=== PATIENT | male | born 1965 | race African-American/Black ===

== ENCOUNTER 2017-05-12 13:16 | Inpatient (IN) | payer OTHER ==
[2017-05-12 13:52] VITALS: BMI 28.9
--- NOTE | 2017-05-12 16:09 | HP ---
CIWA Score - CIWA Score Nausea/Vomitin Muscle Tremors: 3 Anxiety: 3 Agitation: 3 Paroxysmal Sweats: 2 Orientation: 0-Oriented Tacttile Disturbances: 2-Mild Itch/Numbness/Burn Auditory Disturbances: 2-Mild Harshness/Frighten Visual Disturbances: 2-Mild Sensitivity Headache: 2-Mild CIWA-Ar Total Score: 22 Admission ROS BHS - HPI Chief Complaint: I NEED HELP TO STOP DRINKING ALCOHOL AND COCAINE Allergies/Adverse Reactions: Allergies Allergy/AdvReac Type Severity Reaction Status Date / Time No Known Allergies Allergy Verified 05/12/17 16:01 History of Present Illness: THIS 51 YEARS OLD MALE WITH ALCOHOL AND COCAINE DEPENDENCE,SEEKING DETOX,LAST TREATMENT [facility] 07/26/16 TO 07/30/16 SCHIZOAFFECTIVE DISORDER NICOTINE DEPENDENCE LONGEST SOBRIETY 9 MONTHS Exam Limitations: No Limitations - Ebola screening Have you traveled outside of the country in the last 21 days: No Have you had contact with anyone from an Ebola affected area: No Have you been sick,other than usual withdrawal symptoms: No Do you have a fever: No - Review of Systems Constitutional: Loss of Appetite, Malaise, Night Sweats, Changes in sleep EENT: reports: No Symptoms Reported, Nose Congestion Respiratory: reports: No Symptoms reported Cardiac: reports: No Symptoms Reported GI: reports: Diarrhea, Nausea, Vomiting, Abdominal cramping : reports: No Symptoms Reported Musculoskeletal: reports: Back Pain, Muscle Pain Integumentary: reports: Dryness Neuro: reports: Headache, Tremors Endocrine: reports: No Symptoms Reported Hematology: reports: No Symptoms Reported Psychiatric: reports: Judgement Intact, Mood/Affect Appropiate, Orientated x3 ( SCHIZOAFFECTIVE DISORDER), other Patient History - Patient Medical History Hx Anemia: Yes (IRON SUPPLEMENT IN THE PAST) Hx Asthma: No Hx Chronic Obstructive Pulmonary Disease (COPD): No Hx Cancer: No Hx Cardiac Disorders: No Hx Congestive Heart Failure: No Hx Hypertension: Yes (ON MED) Hx Hypercholesterolemia: No Hx Pacemaker: No HX Cerebrovascular Accident: No Hx Seizures: Yes (ALCOHOL RELATED LAST 2015) Hx Dementia: No Hx Diabetes: No Hx Gastrointestinal Disorders: No Hx Liver Disease: No Hx Genitourinary Disorders: Yes (BPH) Hx Sexually Transmitted Disorders: No Hx Renal Disease (ESRD): No Hx Thyroid Disease: No Hx Human Immunodeficiency Virus (HIV): No (NEGATIVE HX LAST 11/29) Hx Hepatitis C: No Hx Depression: Yes Hx Suicide Attempt: Yes (OVER DOSE 2014) Hx Bipolar Disorder: No Hx Schizophrenia: Yes (ON MED) Other Medical History: NO SUICIDAL,NO HOMICIDAL - Patient Surgical History Past Surgical History: No Hx Neurologic Surgery: No Hx Cataract Extraction: No Hx Cardiac Surgery: No Hx Lung Surgery: No Hx Breast Surgery: No Hx Breast Biopsy: No Hx Abdominal Surgery: Yes (SX FOR RIGHT INGUINAL HERNIA AT 25 YEARS OLD) Hx Appendectomy: No Hx Cholecystectomy: No Hx Genitourinary Surgery: No Hx Section: No Hx Orthopedic Surgery: No Anesthesia Reaction: No - PPD History Previous Implant?: Yes Documented Results: Negative w/o proof Implanted On Prior [facility] Admission?: Yes Date: 01/28/16 Results: 0 MM PPD to be Administered?: Yes - Smoking Cessation Smoking history: Current every day smoker Have you smoked in the past 12 months: Yes Aproximately how many cigarettes per day: 1 Hx Chewing Tobacco Use: No Initiated information on smoking cessation: Yes 'Breaking Loose' booklet given: 05/12/17 - Substance & Tx. History Hx Alcohol Use: Yes Hx Substance Use: Yes Substance Use Type: Alcohol, Cocaine Hx Substance Use Treatment: Yes ([facility] 07/26/16 TO 07/30/16) - Substances Abused Alcohol Route: Oral Frequency: Daily Amount used: 1 CASE BEER Age of first use: 12 Date of Last Use: 05/12/17 Crack Route: Smoking Frequency: 1-3 times last 30 days Amount used: $200 Age of first use: 28 Date of Last Use: 05/10/17 Family Disease History - Family Disease History Family Disease History: Heart Disease: Father (COLON ), Mother (stroke , etoh), CA: Father, Other: Mother Admission Physical Exam S - Vital Signs Vital Signs: Vital Signs - 24 hr 05/12/17 13:48 Temperature 97.7 F Pulse Rate 73 Respiratory 18 Rate Blood Pressure 130/84 - Physical General Appearance: Yes: Moderate Distress, Alcohol on Breath, Tremorous, Irritable, Sweating, Anxious HEENTM: Yes: Hearing grossly Normal, Normal ENT Inspection, JOSE, Pharynx Normal Respiratory: Yes: Lungs Clear, Normal Breath Sounds, No Respiratory Distress Neck: Yes: Supple, Trachea in good position Breast: Yes: Within Normal Limits Cardiology: Yes: Within Normal Limits, Regular Rhythm, Regular Rate, S1, S2 Abdominal: Yes: Within Normal Limits, Normal Bowel Sounds, Non Tender, Flat, Soft Genitourinary: Yes: Within Normal Limits Back: Yes: Muscle Spasm Musculoskeletal: Yes: Back pain, Muscle Pain Extremities: Yes: Tremors 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 intact, Fully Oriented, Alert, Motor Strength 5/5 Integumentary: Yes: Dry Lymphatic: Yes: Within Normal Limits - Diagnostic (1) Alcohol dependence with uncomplicated withdrawal Current Visit: Yes Status: Acute (2) Cocaine dependence Current Visit: No Status: Acute Qualifiers: Substance use status: uncomplicated Qualified Code(s): F14.20 - Cocaine dependence, uncomplicated (3) HTN (hypertension) Current Visit: No Status: Chronic Qualifiers: Hypertension type: essential hypertension Qualified Code(s): I10 - Essential (primary) hypertension (4) Nicotine dependence Current Visit: No Status: Chronic Qualifiers: Nicotine product type: cigarettes Substance use status: uncomplicated Qualified Code(s): F17.210 - Nicotine dependence, cigarettes, uncomplicated (5) Schizoaffective disorder Current Visit: No Status: Chronic (6) BPH (benign prostatic hyperplasia) Current Visit: Yes Status: Acute Cleared for Admission S - Detox or Rehab [facility] Level of Care: Medically Managed Detox Regimen/Protocol: Librium [facility] Breath Alcohol Content Breath Alcohol Content: 0.012 Urine Drug Screen - Results Drug Screen Negative: No Urine Drug Screen Results: CAPRICE-Cocaine
[2017-05-12] MEDS ORDERED: LOPERAMIDE HCL 2 MG CAPSULE PO PRN (16:23)
[2017-05-12] MEDS ORDERED: diphenhydrAMINE HCL 50 MG CAPSULE PO PRN (16:23)
[2017-05-12] MEDS ORDERED: chlordiazePOXIDE HCL 25 MG CAPSULE PO PRN (16:23)
[2017-05-12] MEDS ORDERED: MAGNESIUM HYDROX 2400MG/30ML ORAL SUSPENSION 30 ML CUP PO PRN (16:23)
[2017-05-12] MEDS ORDERED: guaiFENesin/D-METHORPHAN HB 10 ML UNIT-DOSE CUPS PO PRN (16:23)
[2017-05-12] MEDS ORDERED: MAGNESIUM CITRATE 300 ML BOTTLE PO PRN (16:23)
[2017-05-12] MEDS ORDERED: IBUPROFEN 400 MG TABLET (FP) PO PRN (16:23)
[2017-05-12] MEDS ORDERED: MAG HYDROX/AL HYDROX/SIMETH 30 ML UNIT-DOSE CUP PO PRN (16:23)
[2017-05-12] MEDS ORDERED: ACETAMINOPHEN 325 MG TABLET (FP) PO PRN (16:23)
[2017-05-12] MEDS ORDERED: MENTHOL/PHENOL 1 EACH UD MM PRN (16:23)
[2017-05-12] MEDS ORDERED: hydrOXYzine PAMOATE 25 MG CAPSULE (FP) PO PRN (16:23)
[2017-05-12] MEDS ORDERED: P-EPHED 60MG/TRIPROLIDI 2.5MG TABLET PO PRN (16:23)
[2017-05-12] MEDS ORDERED: chlordiazePOXIDE HCL 25 MG CAPSULE PO ONE (16:23)
[2017-05-12] MEDS ORDERED: COLLOIDAL OATMEAL 1 BAR EACH TP PRN (17:26)
[2017-05-12] MEDS: chlordiazePOXIDE HCL 25 MG CAPSULE PO SCH ×2 (17:57→22:27)
[2017-05-12] MEDS ORDERED: VARENICLINE TARTRATE 0.5 MG TAB PO SCH (22:00)
[2017-05-12] MEDS: TAMSULOSIN HCL 0.4 MG CAP.ER.24H (FP) PO SCH (22:28)
[2017-05-12] MEDS: CHANTIX 0.5 MG PO SCH (22:28)
[2017-05-12] MEDS: THIAMINE HCL 100 MG TABLET (FP) PO SCH (22:28)
[2017-05-13] MEDS: chlordiazePOXIDE HCL 25 MG CAPSULE PO SCH ×4 (05:38→22:15)
[2017-05-13] MEDS: CHANTIX 0.5 MG PO SCH ×2 (10:15→22:16)
[2017-05-13] MEDS: TAMSULOSIN HCL 0.4 MG CAP.ER.24H (FP) PO SCH ×2 (10:15→22:15)
[2017-05-13] MEDS: PRENATAL VITAMINS W/ FOLIC ACID TABLET (FP) PO SCH (10:15)
[2017-05-13] MEDS: ASPIRIN 81 MG CHEWABLE TABLETS PO SCH (10:15)
[2017-05-13] MEDS: HYDROCHLOROTHIAZIDE 25 MG TABLET (FP) PO SCH (10:16)
[2017-05-13 10:22] LABS: MCH 25.3 pg (25.7-33.7); MCHC 32.7 g/dl (32.0-35.9); MEAN CELL VOLUME 77.3 fl (80-96); MEAN PLT VOLUME 8.7 fl (7.5-11.1); PLATELET COUNT 159 K/MM3 (134-434); RDW 15.4 % (11.9-15.9); WHITE BLOOD COUNT 6.7 K/mm3 (4.0-10.0)
--- NOTE | 2017-05-13 11:06 | PN ---
S CIWA - CIWA Score Nausea/Vomitin Muscle Tremors: 3 Anxiety: 3 Agitation: 3 Paroxysmal Sweats: 1-Minimal Palms Moist Orientation: 0-Oriented Tacttile Disturbances: 1-Very Mild Itch/Numbness Auditory Disturbances: 1-Very Mild Visual Disturbances: 1-Very Mild Sensitivity Headache: 2-Mild CIWA-Ar Total Score: 18 S Progress Note (SOAP) Subjective: ALERT,IRRITABLE,ANXIOUS,INTERRUPTED SLEEP,TREMOR Objective: 05/13/17 11:03 Vital Signs Temperature 98.1 F 05/13/17 06:09 Pulse Rate 58 L 05/13/17 06:09 Respiratory Rate 16 05/13/17 06:09 Blood Pressure 114/68 05/13/17 06:09 O2 Sat by Pulse Oximetry (%) EKG NSR,LOW VOLTAGE NO CHEST PAIN,NO SOB,NO DIZZINESS 05/13/17 11:04 Laboratory Last Values WBC 6.7 K/mm3 (4.0-10.0) 05/13/17 06:30 RBC 5.30 M/mm3 (4.00-5.60) 05/13/17 06:30 Hgb 13.4 GM/dL (11.7-16.9) 05/13/17 06:30 Hct 40.9 % (35.4-49) 05/13/17 06:30 MCV 77.3 fl (80-96) L 05/13/17 06:30 MCH 25.3 pg (25.7-33.7) L 05/13/17 06:30 MCHC 32.7 g/dl (32.0-35.9) 05/13/17 06:30 RDW 15.4 % (11.9-15.9) 05/13/17 06:30 Plt Count 159 K/MM3 (134-434) D 05/13/17 06:30 MPV 8.7 fl (7.5-11.1) 05/13/17 06:30 05/13/17 11:05 LABS PENDING Assessment: 05/13/17 11:05 WITHDRAWAL SYMPTOM Plan: CONTINUE DETOX
--- NOTE | 2017-05-13 11:56 | CONSULT ---
[facility] Psychiatric Consult - Data Date of interview: 05/13/17 Admission source: [facility] Identifying data: Readmission to [facility] for this AA male seeking detox treatment on for alcohol and cocaine (crack) dependence.[place] is single ,a father of three,domiciled,unemployed and supported on Public Assistance funds. Substance Abuse History: Discussed in detail with the patient at this interview.Mr Marks confirms his statements made at [facility] : Smoking Cessation. Smoking history: Current every day smoker. Have you smoked in the past 12 months: Yes. Aproximately how many cigarettes per day: 1. Hx Chewing Tobacco Use: No. Initiated information on smoking cessation: Yes. 'Breaking Loose' booklet given: 05/12/17. - Substance & Tx. History. Hx Alcohol Use: Yes. Hx Substance Use: Yes. Substance Use Type: Alcohol, Cocaine. Hx Substance Use Treatment: Yes ([facility] 07/26/16 TO 07/30/16). - Substances Abused. Alcohol. Route: Oral. Frequency: Daily. Amount used: 1 CASE BEER. Age of first use: 12. Date of Last Use: 05/12/17. Crack. Route: Smoking. Frequency: 1-3 times last 30 days. Amount used: $200. Age of first use: 28. Date of Last Use : 05/10/17 Medical History: Significant for anemia,history of syncope (2016 at [facility]), hypertension,benign prostatic hyperplasia,seizures and a history of right inguinal herniorraphy. Psychiatric History: Patient continues to endorse the diagnosis of Schizoaffective Disorder (established in 2006) and a history of 3 psychiatric hospitalizations ([facility] + [facility] 2011) + [facility] (2014).OPD care is still rendered at [facility] ( [facility] in the [place].Maintenance regime consists of a combination of Risperdal + Zoloft + Remeron (doses not recalled according to patient).Mr Marks reports compliance with his medications (questionable self- report).Records indicate a history of two suicide attempts (age 12 + 47) via overdoses with drugs. Physical/Sexual Abuse/Trauma History: Patient denies. Additional Comment: Urine Drug Screen Results: CAPRICE-Cocaine.Noted. Mental Status Exam - Mental Status Exam Alert and Oriented to: Time, Place, Person Cognitive Function: Good Patient Appearance: Well Groomed Mood: Withdrawn Affect: Normal Range Patient Behavior: Sedated (light sedation), Fatigued Speech Pattern: Clear, Appropriate Voice Loudness: Normal Thought Process: Goal Oriented Thought Disorder: Not Present Hallucinations: Denies Suicidal Ideation: Denies Homicidal Ideation: Denies Insight/Judgement: Poor Sleep: Poorly, Difficulty falling asleep (wants benadryl) Appetite: Good Muscle strength/Tone: Normal Gait/Station: Normal Psychiatric Findings - Problem List ([place] 1, 2,3) (1) Alcohol dependence with uncomplicated withdrawal Current Visit: Yes Status: Acute (2) Cocaine dependence Current Visit: Yes Status: Acute Qualifiers: Substance use status: uncomplicated Qualified Code(s): F14.20 - Cocaine dependence, uncomplicated (3) Nicotine dependence Current Visit: Yes Status: Acute Qualifiers: Nicotine product type: cigarettes Substance use status: uncomplicated Qualified Code(s): F17.210 - Nicotine dependence, cigarettes, uncomplicated (4) Schizoaffective disorder Current Visit: Yes Status: Chronic (5) Substance induced mood disorder Current Visit: Yes Status: Acute (6) BPH (benign prostatic hyperplasia) Current Visit: Yes Status: Chronic (7) HTN (hypertension) Current Visit: Yes Status: Chronic Qualifiers: Hypertension type: essential hypertension Qualified Code(s): I10 - Essential (primary) hypertension (8) Insomnia Current Visit: Yes Status: Acute - Initial Treatment Plan Initial Treatment Plan: Psychoeducation.Detoxification.Medications (modified regimen due to a well established documentation of past history of syncope): risperdal 2 mg po hs + remeron 15 mg po hs + zoloft 100 mg po daily.Recent pharmacy claims are reviewed : scripts for risperdal 3 mg po bid + zoloft 200 mg /day + remeron 15 mg/hs were issued on 05/06/[address] Gerard Byrnes and sent to [employer] # [id number].NO scripts needed at discharge from [facility].Side effects/benefits of these medications are discussed with the patient.Made aware of potential for abnormal involuntary movements,akathisia, akinesia,dystonias,dyskinesias,neuroleptic malignant syndrome,sexual dysfunction ,galactorrhea,gynecomastia and cardiovascular adverse events (risperdal), suicidal ideation/sexual dysfunction (sertraline) and orthostasis (mirtazapine) .Patient insists on getting back on his medications (in view of past history of good response and tolerability).Mr Marks is in agreement with this careplan.Observation.Refer to medical progress note of 01/27/16 (Jack Metzger) .
[2017-05-13 11:59] LABS: ALBUMIN 3.6 g/dl (3.4-5.0); ALK PHOS 88 U/L (45-117); ANION GAP 11 (8-16); BILIRUBIN,TOTAL 0.8 mg/dL (0.2-1.0); CO2 31 mmol/L (21-32); CREATININE 1.1 mg/dL (0.7-1.3); GLUCOSE,RANDOM 81 mg/dL (74-106); SGOT/AST 26 U/L (15-37); SGPT/ALT 35 U/L (12-78); TOT PROT 6.4 g/dl (6.4-8.2)
--- NOTE | 2017-05-13 14:21 | EKG ---
Test Reason : Blood Pressure : / mmHG Vent. Rate : 068 BPM Atrial Rate : 068 BPM P-R Int : 154 ms QRS Dur : 078 ms QT Int : 404 ms P-R-T Axes : 053 040 042 degrees QTc Int : 429 ms POOR DATA QUALITY, INTERPRETATION MAY BE ADVERSELY AFFECTED NORMAL SINUS RHYTHM POSSIBLE LEFT ATRIAL ENLARGEMENT LOW VOLTAGE QRS SEPTAL INFARCT (CITED ON OR BEFORE 27-JAN-2016) ABNORMAL ECG WHEN COMPARED WITH ECG OF 27-JAN-2016 18:05, NONSPECIFIC T WAVE ABNORMALITY, IMPROVED IN INFERIOR LEADS NONSPECIFIC T WAVE ABNORMALITY NO LONGER EVIDENT IN LATERAL LEADS REPEAT EKG IF CLINICALLY INDICATED Confirmed by GIOVANNY MCELROY MD ([id number]) on 05/13/2017 2:20:59 PM Referred By: Confirmed By:GIOVANNY MCELROY MD
[2017-05-13] MEDS: risperiDONE 2 MG TABLET PO SCH (22:15)
[2017-05-13] MEDS: THIAMINE HCL 100 MG TABLET (FP) PO SCH (22:19)
[2017-05-14] MEDS: chlordiazePOXIDE HCL 25 MG CAPSULE PO SCH ×2 (05:59→10:22)
--- NOTE | 2017-05-14 09:53 | PN ---
S CIWA - CIWA Score Nausea/Vomitin Muscle Tremors: 3 Anxiety: 2 Agitation: 2 Paroxysmal Sweats: 1-Minimal Palms Moist Orientation: 0-Oriented Tacttile Disturbances: 1-Very Mild Itch/Numbness Auditory Disturbances: 1-Very Mild Visual Disturbances: 1-Very Mild Sensitivity Headache: 2-Mild CIWA-Ar Total Score: 16 S Progress Note (SOAP) Subjective: alert,irritable,anxious,interrupted sleep,tremor Objective: 05/14/17 09:51 Vital Signs Temperature 97.5 F L 05/14/17 06:24 Pulse Rate 66 05/14/17 06:24 Respiratory Rate 20 05/14/17 06:24 Blood Pressure 124/76 05/14/17 06:24 O2 Sat by Pulse Oximetry (%) Laboratory Last Values WBC 6.7 K/mm3 (4.0-10.0) 05/13/17 06:30 RBC 5.30 M/mm3 (4.00-5.60) 05/13/17 06:30 Hgb 13.4 GM/dL (11.7-16.9) 05/13/17 06:30 Hct 40.9 % (35.4-49) 05/13/17 06:30 MCV 77.3 fl (80-96) L 05/13/17 06:30 MCH 25.3 pg (25.7-33.7) L 05/13/17 06:30 MCHC 32.7 g/dl (32.0-35.9) 05/13/17 06:30 RDW 15.4 % (11.9-15.9) 05/13/17 06:30 Plt Count 159 K/MM3 (134-434) D 05/13/17 06:30 MPV 8.7 fl (7.5-11.1) 05/13/17 06:30 Sodium 142 mmol/L (136-145) 05/13/17 06:30 Potassium 3.5 mmol/L (3.5-5.1) 05/13/17 06:30 Chloride 100 mmol/L (98-107) 05/13/17 06:30 Carbon Dioxide 31 mmol/L (21-32) 05/13/17 06:30 Anion Gap 11 (8-16) 05/13/17 06:30 BUN 14 mg/dL (7-18) D 05/13/17 06:30 Creatinine 1.1 mg/dL (0.7-1.3) 05/13/17 06:30 Creat Clearance w eGFR > 60 (>60) 05/13/17 06:30 Random Glucose 81 mg/dL (74-106) D 05/13/17 06:30 Calcium 9.0 mg/dL (8.5-10.1) 05/13/17 06:30 Total Bilirubin 0.8 mg/dL (0.2-1.0) D 05/13/17 06:30 AST 26 U/L (15-37) D 05/13/17 06:30 ALT 35 U/L (12-78) 05/13/17 06:30 Alkaline Phosphatase 88 U/L (45-117) 05/13/17 06:30 Total Protein 6.4 g/dl (6.4-8.2) 05/13/17 06:30 Albumin 3.6 g/dl (3.4-5.0) D 05/13/17 06:30 RPR Titer Nonreactive (NONREACTIVE) D 05/13/17 06:30 Hepatitis C Antibody <0.1 s/co ratio (0.0-0.9) 05/12/17 06:30 Assessment: 05/14/17 09:52 withdrawal symptom Plan: continue detox
[2017-05-14] MEDS: CHANTIX 0.5 MG PO SCH ×2 (10:19→23:06)
[2017-05-14] MEDS: PRENATAL VITAMINS W/ FOLIC ACID TABLET (FP) PO SCH (10:19)
[2017-05-14] MEDS: HYDROCHLOROTHIAZIDE 25 MG TABLET (FP) PO SCH (10:20)
[2017-05-14] MEDS: TAMSULOSIN HCL 0.4 MG CAP.ER.24H (FP) PO SCH ×2 (10:21→22:30)
[2017-05-14] MEDS: SERTRALINE HCL 50 MG TABLET (FP) PO SCH (10:22)
[2017-05-14] MEDS: ASPIRIN 81 MG CHEWABLE TABLETS PO SCH (10:22)
[2017-05-14] MEDS: chlordiazePOXIDE 5 MG CAPSULE PO SCH ×2 (17:16→22:30)
[2017-05-14] MEDS: THIAMINE HCL 100 MG TABLET (FP) PO SCH (22:30)
[2017-05-14] MEDS: risperiDONE 2 MG TABLET PO SCH (22:30)
[2017-05-15] MEDS: chlordiazePOXIDE 5 MG CAPSULE PO SCH ×2 (05:55→11:24)
--- NOTE | 2017-05-15 10:50 | PN ---
S Progress Note (SOAP) Subjective: ALERT,IRRITABLE,ANXIOUS,INTERRUPTED SLEEP Objective: 05/15/17 10:50 Vital Signs Temperature 96.4 F L 05/15/17 06:10 Pulse Rate 89 05/15/17 09:26 Respiratory Rate 16 05/15/17 09:26 Blood Pressure 138/81 05/15/17 09:26 O2 Sat by Pulse Oximetry (%) Assessment: 05/15/17 10:50 WITHDRAWAL SYMPTOM Plan: CONTINUE DETOX,DISCHARGE IN AM
[2017-05-15] MEDS: PRENATAL VITAMINS W/ FOLIC ACID TABLET (FP) PO SCH (11:24)
[2017-05-15] MEDS: ASPIRIN 81 MG CHEWABLE TABLETS PO SCH (11:24)
[2017-05-15] MEDS: TAMSULOSIN HCL 0.4 MG CAP.ER.24H (FP) PO SCH ×2 (11:25→22:34)
[2017-05-15] MEDS: HYDROCHLOROTHIAZIDE 25 MG TABLET (FP) PO SCH (11:25)
[2017-05-15] MEDS: CHANTIX 0.5 MG PO SCH ×2 (11:28→22:35)
[2017-05-15] MEDS: chlordiazePOXIDE HCL 10 MG CAPSULE PO SCH ×2 (17:55→22:34)
[2017-05-15] MEDS: risperiDONE 2 MG TABLET PO SCH (22:34)
[2017-05-15] MEDS: THIAMINE HCL 100 MG TABLET (FP) PO SCH (22:34)
[2017-05-16] MEDS: chlordiazePOXIDE HCL 10 MG CAPSULE PO SCH (05:49)
--- NOTE | 2017-05-16 09:15 | DS ---
[facility] Detox Discharge Summary Admission Date: 05/12/17 Discharge Date: 05/16/17 - History Present History: Alcohol Dependence, Cocaine Dependence Additional Comments: follow up with after care program as arrangement Pertinent Past History: hypertension bph nicotine dependence schizoaffective disorder - Physical Exam Results Vital Signs: Vital Signs Temperature 98.0 F 05/16/17 06:22 Pulse Rate 67 05/16/17 06:22 Respiratory Rate 18 05/16/17 06:22 Blood Pressure 117/74 05/16/17 06:22 O2 Sat by Pulse Oximetry (%) Pertinent Admission Physical Exam Findings: withdrawal symptom - Treatment Hospital Course: Detox Protocol Followed, Detoxed Safely, Responded well, Discharged Condition Good, Rehab Referral Accepted Patient has Accepted a Rehab Referral to[facility] - Medication Discharge Medications: Ambulatory Orders Hydrochlorothiazide [Hctz -] 25 mg PO DAILY #30 tablet 11/15/14 Sertraline HCl [Zoloft -] 200 mg PO DAILY #0 tablet 01/30/16 Mirtazapine [Remeron -] 15 mg PO HS #30 tablet 07/29/16 Risperidone [Risperdal] 2 mg PO HS #30 tablet 07/29/16 Aspirin [ASA -] 81 mg PO DAILY 05/12/17 Diphenhydramine [Benadryl -] 50 mg PO HS PRN 05/12/17 Tamsulosin HCl [Flomax -] 0.4 mg PO BID 05/12/17 Varenicline Tartrate [Chantix] 0.5 mg PO BID 05/12/17 - Diagnosis (1) Alcohol dependence with uncomplicated withdrawal Current Visit: Yes Status: Acute (2) Cocaine dependence Current Visit: Yes Status: Acute Qualifiers: Substance use status: uncomplicated Qualified Code(s): F14.20 - Cocaine dependence, uncomplicated (3) HTN (hypertension) Current Visit: Yes Status: Chronic Qualifiers: Hypertension type: essential hypertension Qualified Code(s): I10 - Essential (primary) hypertension (4) Nicotine dependence Current Visit: Yes Status: Acute Qualifiers: Nicotine product type: cigarettes Substance use status: uncomplicated Qualified Code(s): F17.210 - Nicotine dependence, cigarettes, uncomplicated (5) Schizoaffective disorder Current Visit: Yes Status: Chronic (6) BPH (benign prostatic hyperplasia) Current Visit: Yes Status: Chronic
[2017-05-16] MEDS: CHANTIX 0.5 MG PO SCH (09:51)
[2017-05-16] MEDS: HYDROCHLOROTHIAZIDE 25 MG TABLET (FP) PO SCH (09:51)
[2017-05-16] MEDS: PRENATAL VITAMINS W/ FOLIC ACID TABLET (FP) PO SCH (09:51)
[2017-05-16] MEDS: ASPIRIN 81 MG CHEWABLE TABLETS PO SCH (09:51)
[2017-05-16] MEDS: SERTRALINE HCL 50 MG TABLET (FP) PO SCH ×2 (09:51→09:52)
[2017-05-16] MEDS: TAMSULOSIN HCL 0.4 MG CAP.ER.24H (FP) PO SCH (09:52)
[2017-05-16 10:56] VITALS: TEMP 97.5
[2017-05-16 10:58] VITALS: BP 135/99; PULSE 72
== END 2017-05-16 12:10 | disposition home or self-care (01) | DRG 774 ==
LOC: YASAS 13:16 → Y6N 16:40
PROVIDERS: ADMIT Internal Medicine; ATTEND Internal Medicine
PROC: HZ2ZZZZ Detoxification Services for Substance Abuse Treatment (ICD-10-PCS; principal; 2017-05-12)
DX: F10.230 Alcohol dependence with withdrawal, uncomplicated (principal); F14.20 Cocaine dependence, uncomplicated; F17.210 Nicotine dependence, cigarettes, uncomplicated; F25.9 Schizoaffective disorder, unspecified; F19.24 Other psychoactive substance dependence with psychoactive substance-induced mood disorder; I10 Essential (primary) hypertension; N40.0 Benign prostatic hyperplasia without lower urinary tract symptoms; G47.00 Insomnia, unspecified; D64.9 Anemia, unspecified; Z79.82 Long term (current) use of aspirin; Z86.79 Personal history of other diseases of the circulatory system; Z86.69 Personal history of other diseases of the nervous system and sense organs; Z91.5 Personal history of self-harm
CPT/HCPCS: 36415; 80053; 85027; 86593; 86803; 93005; 93010